=== PATIENT | male | born 1995 | race Caucasian/White ===

== ENCOUNTER → 2017-03-05 20:15 | Emergency (ER) | payer SELFPAY ==
[2017-03-05 20:30] VITALS: BP 145/71
== END | disposition left against medical advice (07) ==
LOC: ED 20:15
DX: K08.89 Other specified disorders of teeth and supporting structures (principal); Z53.21 Procedure and treatment not carried out due to patient leaving prior to being seen by health care provider

== ENCOUNTER 2017-09-06 19:54 | Emergency (ER) | payer OTHER ==
[2017-09-06 20:21] VITALS: BP 156/74
[2017-09-06] MEDS ORDERED: Ondansetron ODT TAB* 4 MG PO ONE (21:13)
--- NOTE | 2017-09-06 21:14 | UC ---
Abdominal Pain Male HPI - HPI Summary HPI Summary: 22 y/o male presents to the urgent care c/o abdominal cramping pain and vomiting since . Pt reports le had an episode of vomiting on night w/ mild cramping abdominal pain. Vomiting returned this afternoon w/ the cramping abdominal pain. Pain is 6/10 is intermittent and diffused w/o any specific radiation. Pt ate late breakfast around noon time. He had a hard bowel movement yesterday and none today. Pt has a lot of gas. Pt denies eating outside, recent travel, recent URI symptoms, fever, SOB, chest pain, diarrhea, blood in the stool. Pt took Pepto-Bismol earlier to alleviate and he thinks that triggered he vomiting. He is UTD w/ all his vaccines for his age. - History of Current Complaint Chief Complaint: UCGI Stated Complaint: ABD PAIN,NAUSEA Time Seen by Provider: 09/06/17 20:52 Hx Obtained From: Patient Onset/Duration: Gradual Onset, Lasting Days - 3 days, Still Present, Worse Since - today Timing: Intermittent Episodes Lasting: - few minutes Severity Initially: Mild Severity Currently: Moderate Pain Intensity: 6 Pain Scale Used: 0-10 Numeric Location: Diffuse Radiates: No Character: Cramping Aggravating Factor(s): Other - yook pepto-Bismol and triguered vomiting Alleviating Factor(s): Rest, Position - laying down Associated Signs And Symptoms: Positive: Constipation, Nausea, Vomiting. Negative: Diaphoresis, Fever, Cough, Blood in Stool, Urinary Symptoms, Decreased Appetite - Risk Factors Testicular Torsion: Negative Cardiac Risk Factors: Negative - Allergies/Home Medications Allergies/Adverse Reactions: Allergies Allergy/AdvReac Type Severity Reaction Status Date / Time No Known Allergies Allergy Verified 09/06/17 20:21 PMH/Surg Hx/FS Hx/Imm Hx Previously Healthy: Yes - Pt denies PMHX - Surgical History Surgical History: None - Family History Known Family History: Positive: Unknown - Pt is adopted - Social History Occupation: Student Lives: With Family Alcohol Use: Occasionally Substance Use Type: None, Marijuana Smoking Status (MU): Former Smoker - Immunization History Vaccination Up to Date: Yes Review of Systems Constitutional: Negative Skin: Negative Eyes: Negative ENT: Negative Respiratory: Negative Cardiovascular: Negative Gastrointestinal: Abdominal Pain - diffuse cramping abdominal pain, Vomiting, Nausea Genitourinary: Negative Motor: Negative Neurovascular: Negative Musculoskeletal: Negative Neurological: Negative Psychological: Negative Is Patient Immunocompromised?: No All Other Systems Reviewed And Are Negative: Yes Physical Exam Triage Information Reviewed: Yes Vital Signs: Initial Vital Signs Temp 98.6 F 09/06/17 20:16 Pulse 71 09/06/17 20:16 Resp 16 09/06/17 20:16 BP 156/74 09/06/17 20:16 Pulse Ox 98 09/06/17 20:16 - Additional Comments VITAL SIGNS: Reviewed. GENERAL: Patient is a well developed and nourished male who is lying comfortable in the examining table. Patient is not in any acute respiratory distress. HEAD AND FACE: Normocephalic and atraumatic. EYES: PERRLA, EOMI x 2, No injected conjunctiva. EARS: Hearing grossly intact. Ear canals and tympanic membranes are WNL. MOUTH: Oropharynx within normal limits. NECK: Supple, trachea is midline, no adenopathy, no JVD. CHEST: Symmetric, no tenderness at palpation LUNGS: Clear to auscultation bilaterally. No wheezing or crackles. CVS: RRR,, S1 and S2 present, no murmurs or gallops appreciated. ABDOMEN::: , Flat with no distention. No surface trauma, normal bowel sounds present in all four quadrants. Moderate tenderness on B/L LQ on deep palpation , no rebound, no guarding, no rigidity to palpation. No masses palpated, no pulsation in epigastric area. No organomegaly. Negative Treadwell's signs. No periumbilical tenderness. NT over McBurney's point. Good femoral pulses bilaterally. No hernia noted. No CVAT bilaterally EXTREMITIES: FROM in all major joints, no edema, no cyanosis or clubbing. NEURO: Alert and oriented x 3. No acute neurological deficits. Speech is normal. SKIN: Dry and warm Abd Pain Male Course/Dx - Course Course Of Treatment: 22 y/o male presents to the urgent care c/o abdominal cramping pain and vomiting since . Pt reports le had an episode of vomiting on night w/ mild cramping abdominal pain. Vomiting returned this afternoon w/ the cramping abdominal pain. Pain is 6/10 is intermittent and diffused w/o any specific radiation. Pt ate late breakfast around noon time. He had a hard bowel movement yesterday and none today. Pt has a lot of gas. Pt denies eating outside, recent travel, recent URI symptoms, fever, SOB, chest pain, diarrhea, blood in the stool. Pt took Pepto-Bismol earlier to alleviate and he thinks that triggered he vomiting. He is UTD w/ all his vaccines for his age.Hx obatined. Pt w/ 1 episode of vomiting before arriving to the clinic. Pt given Zofran PO to alleviate vomiting by the Nurse. pt tolerated well medication.. Pt w/ point tendeness over B/L lower quadrant on examination. Pt's symptoms counsulted w/ Dr Iqbal. Dr Iqbal evaluated Pt and abdomen was soft, normal bowel sounds and no tenderness eleicited at that time. She recommended Zofran PO and Miralax PO to alleviate symptoms. Pt probably w/ constipation. Pt was about to be discharge home. Pt's Mother came in and Pt's abdominal cramping pain returned. Pt's symptoms discussed w/ mother and Mother advised to take her son to the Er for further evaluation and treatment. pt's offered abulance. Mother declined ambulance transfer and stated she will take her son to the ER by private car. D/C instructions explained. Pt left the clinic hemodynamically stable, A&OX3. - Differential Dx/Clinical Impression Differential Diagnosis/HQI/PQRI: Appendicitis, Diverticulitis, Peptic Ulcer Disease, Other - constipation, gastroenteritis Provider Diagnoses: 1- Acute abdominal pain. 2-nausea and vomiting. 3- Constipation. 4- elevated BP w/o Hx of HTN Discharge - Discharge Plan Condition: Stable Disposition: OTHER Discharge Disposition Comment: Pt highly recommended to go to the ER for further Tx on acute abdominal lance Prescriptions: Ondansetron ODT TAB* [Zofran 4 MG Odt TAB*] 4 mg PO Q6H PRN #12 tab.odt PRN Reason: Vomiting Polyethylene Glycol 3350* [Miralax*] 17 gm PO DAILY #1 bottle Patient Education Materials: Constipation (ED), Acute Nausea and Vomiting (ED) , Acute Abdominal Pain (ED), Low-Sodium Diet (ED) Referrals: [facility], [Primary Care Provider] - 2 Days Additional Instructions: 1-Please I highly recommend you to go to the ER for further evaluation and treatment on you abdominal symptoms and have blood work to r/o appendicitis etc. The risks of not going to the ER can be sepsis etc 1- Please increase fluid intake with Gatorade or Pedialyte OTC. eat soft meals and rest. 2- Take the Zofran PO as directed to alleviate nausea and vomiting 3- If you develops fever or abdominal pain w/ recurrent episodes of diarrhea please go the ER, otherwise f/u with your PCP if diarrhea not resolving in 2-3 days 4- Your BP is elevated today please decrease salt in your diet, monitor BP at home, if it continues to be elevated please f/u with your PCP for further management.
== END 2017-09-06 21:30 ==
LOC: UCEAST 19:54
DX: R10.0 Acute abdomen (principal); R11.2 Nausea with vomiting, unspecified; K59.00 Constipation, unspecified; R03.0 Elevated blood-pressure reading, without diagnosis of hypertension; Z87.891 Personal history of nicotine dependence
CPT/HCPCS: 99212; A9270-GY; G0463

== ENCOUNTER 2017-09-06 21:51 | Emergency (ER) | payer OTHER ==
[2017-09-06] MEDS ORDERED: Ondansetron INJ* 2 MG/ML VIAL IV ONE (22:21)
[2017-09-06] MEDS ORDERED: Famotidine TAB* 20 MG PO ONE (22:21)
[2017-09-06 23:27] LABS: ABS Basophils 0 10^3/ul (0-0.2); ABS Eosinophils 0 10^3/ul (0-0.6); ABS Lymphocytes 0.6 10^3/ul (1.0-4.8); ABS Neutrophils 14.6 10^3/ul (1.5-7.7); ABS Nucleated RBC 0 10^3/ul; Eosinophil % 0 % (0-6); Hematocrit 43 % (42-52); Hemoglobin 14.8 g/dl (14.0-18.0); Lymphocyte % 3.9 % (25-47); Mean Corpuscular HGB Conc 34 g/dl (31-36); Mean Corpuscular Hemoglobin 31 pg (27-31); Mean Corpuscular Volume 92 fL (80-94); Mean Platelet Volume 8 um3 (7.4-10.4); Nucleated Red Blood Cells % 0; Platelet Count 188 10^3/ul (150-450); Red Blood Count 4.72 10^6/ul (4.0-5.4); Red Cell Distribution Width 13 % (10.5-15); White Blood Count 16.2 10^3/ul (3.5-10.8)
[2017-09-06 23:43] LABS: EGFR Non-African American 102.3 (>60)
[2017-09-07] MEDS ORDERED: Polyethylene Glycol 3350* 17 GM PACKET PO ONE (00:05)
[2017-09-07] MEDS ORDERED: Simethicone LIQ* 40 MG/0.6 ML UD ORAL SYRINGE PO ONE (00:05)
[2017-09-07] MEDS ORDERED: Al Hydrox/Mg Hydrox/Simet LIQ* 30 ML UDC PO ONE (00:08)
[2017-09-07] MEDS ORDERED: Acetaminophen TAB* 325 MG PO ONE (01:01)
[2017-09-07 01:18] VITALS: BP 114/65
--- NOTE | 2017-09-07 01:22 | ED ---
Abdominal Pain/Male - HPI Summary HPI Summary: Patient is reasonably 22-year-old male presenting to the ED from urgent care with the chief complaint of diffuse upper abdominal pain and epigastric pain which is intermittent and with associated nausea vomiting. Denies any constipation or diarrhea, however states had a hard small bowel movement yesterday, with no bowel movement today. He is normally very regular. He continues to eat and drink okay, but is somewhat less. Symptoms are not aggravated with food or positioning, not alleviated with rest. He has not taken anything for the discomfort. He states while symptoms started 2 days ago , yesterday he felt improved with symptoms returning this afternoon. Denies hematemesis or melena. Denies any sick contacts or travel. Denies eating anything abnormal. Denies fevers, sweats, chills. Endorses slight weakness. Vomiting has been 3 times total in the past 3 days. Vital signs are stable on arrival. - History of Current Complaint Chief Complaint: EDAbdPain Stated Complaint: ABD PAIN Time Seen by Provider: 09/06/17 23:09 Hx Obtained From: Patient Onset/Duration: Sudden Onset Timing: Constant Severity Initially: Moderate Severity Currently: Moderate Pain Intensity: 4 Pain Scale Used: 0-10 Numeric Location: Epigastric Radiates: No Character: Cramping Aggravating Factor(s): Nothing Alleviating Factor(s): Nothing Associated Signs And Symptoms: Positive: Constipation, Nausea, Vomiting. Negative: Diaphoresis, Fever, Cough, Chest Pain, Dizzy, Urinary Symptoms, Decreased Appetite, Diarrhea, Penile Discharge, Other - Risk Factors Testicular Torsion: Negative Cardiac Risk Factors: Negative - Allergies/Home Medications Allergies/Adverse Reactions: Allergies Allergy/AdvReac Type Severity Reaction Status Date / Time No Known Allergies Allergy Verified 09/06/17 20:21 PMH/Surg Hx/FS Hx/Imm Hx Previously Healthy: Yes Endocrine/Hematology History: Denies: Hx Diabetes, Hx Thyroid Disease Cardiovascular History: Denies: Hx Hypertension Respiratory History: Denies: Hx Asthma, Hx Chronic Obstructive Pulmonary Disease (COPD) GI History: Denies: Hx Ulcer - Immunization History Hx Pertussis Vaccination: No Immunizations Up to Date: Unable to Obtain/Confirm Infectious Disease History: No Infectious Disease History: Denies: Hx Hepatitis, Hx Human Immunodeficiency Virus (HIV), Traveled Outside the [place] in Last 30 Days - Social History Occupation: Unemployed, Student Lives: With Family Alcohol Use: Occasionally Hx Substance Use: No Substance Use Type: Reports: None Hx Tobacco Use: No Smoking Status (MU): Former Smoker Review of Systems Positive: Fatigue. Negative: Fever, Chills Negative: Photophobia, Blurred Vision Negative: Palpitations, Chest Pain Negative: Shortness Of Breath, Cough Positive: Abdominal Pain, Vomiting, Nausea. Negative: Diarrhea Genitourinary: Negative Positive: no symptoms reported, see HPI Negative: Arthralgia, Myalgia Neurological: Negative All Other Systems Reviewed And Are Negative: Yes Physical Exam Triage Information Reviewed: Yes Vital Signs On Initial Exam: Initial Vitals Temp Pulse Resp BP Pulse Ox 98.8 F 87 16 123/61 98 09/06/17 21:53 09/06/17 21:53 09/06/17 21:53 09/06/17 21:53 09/06/17 21:53 Vital Signs Reviewed: Yes Appearance: Positive: Well-Appearing, Well-Nourished Skin: Positive: Warm, Skin Color Reflects Adequate Perfusion Head/Face: Positive: Normal Head/Face Inspection Eyes: Positive: EOMI, VIOLETA, Conjunctiva Clear Neck: Positive: Supple, No Lymphadenopathy Respiratory/Lung Sounds: Positive: Clear to Auscultation, Breath Sounds Present Cardiovascular: Positive: RRR, Pulses are Symmetrical in both Upper and Lower Extremities Abdomen Description: Positive: Soft, Other: - Obturator and psoas negative, Treadwell's negative, decreased bowel sounds in all 4 quadrants, pain to palpation of the epigastric region, no evidence of distention or organomegaly, no guarding , abdomen remains soft. Negative: CVA Tenderness (R), CVA Tenderness (L), Distended, Guarding, Hepatomegaly - 2 hours ago, McBurney's Point Tenderness Musculoskeletal: Positive: Normal, Strength/ROM Intact Neurological: Positive: Speech Normal Psychiatric: Positive: Normal, Affect/Mood Appropriate AVPU Assessment: Alert Diagnostics - Vital Signs Vital Signs Temp Pulse Resp BP Pulse Ox 09/07/17 01:09 100.1 F 75 19 114/65 97 09/06/17 21:53 98.8 F 87 16 123/61 98 - Laboratory Lab Results: Lab Results 09/06/17 09/06/17 Range/Units 23:15 23:15 WBC 16.2 H (3.5-10.8) 10^3/ul RBC 4.72 (4.0-5.4) 10^6/ul Hgb 14.8 (14.0-18.0) g/dl Hct 43 (42-52) % MCV 92 (80-94) fL MCH 31 (27-31) pg MCHC 34 (31-36) g/dl RDW 13 (10.5-15) % Plt Count 188 (150-450) 10^3/ul MPV 8 (7.4-10.4) um3 Neut % (Auto) 89.7 H (38-83) % Lymph % (Auto) 3.9 L (25-47) % Shelby % (Auto) 6.1 (0-7) % Eos % (Auto) 0 (0-6) % Baso % (Auto) 0.3 (0-2) % Absolute Neuts (auto) 14.6 H (1.5-7.7) 10^3/ul Absolute Lymphs (auto) 0.6 L (1.0-4.8) 10^3/ul Absolute Monos (auto) 1.0 H (0-0.8) 10^3/ul Absolute Eos (auto) 0 (0-0.6) 10^3/ul Absolute Basos (auto) 0 (0-0.2) 10^3/ul Absolute Nucleated RBC 0 10^3/ul Nucleated RBC % 0 Sodium 133 (133-145) mmol/L Potassium 3.9 (3.5-5.0) mmol/L Chloride 97 L (101-111) mmol/L Carbon Dioxide 29 (22-32) mmol/L Anion Gap 7 (2-11) mmol/L BUN 15 (6-24) mg/dL Creatinine 0.94 (0.67-1.17) mg/dL Est GFR ( Amer) 131.6 (>60) Est GFR (Non-Af Amer) 102.3 (>60) BUN/Creatinine Ratio 16.0 (8-20) Glucose 122 H (70-100) mg/dL Calcium 9.6 (8.6-10.3) mg/dL Total Bilirubin 0.90 (0.2-1.0) mg/dL AST 14 (13-39) U/L ALT 10 (7-52) U/L Alkaline Phosphatase 67 (34-104) U/L Total Protein 7.2 (6.4-8.9) g/dL Albumin 4.7 (3.2-5.2) g/dL Globulin 2.5 (2-4) g/dL Albumin/Globulin Ratio 1.9 (1-3) Lipase < 10 L (11.0-82.0) U/L Result Diagrams: 09/06/17 23:15 09/06/17 23:15 Lab Statement: Any lab studies that have been ordered have been reviewed, and results considered in the medical decision making process. Abdominal Pain Fem Course/Dx - Course Course Of Treatment: During the course of treatment, the patient is evaluated for upper diffuse intermittent abdominal pain with associated nausea and vomiting most notably pain over the epigastric region. Pain is not aggravated or alleviated with food or rest. Vital signs within normal limits on arrival. Reading the note from urgent care, the provider states most likely symptoms due to constipation. Labs obtained and shows a elevated white count at 16.2, this is likely due to vomiting. While unlikely that severe constipation would cause nausea/vomiting, this is also likely viral. There are no other signs of bacterial infection. Denies urinary symptoms or back pain, denies cough or chest congestion. Denies any recent fevers. On physical examination, obturator and psoas negative, Treadwell's sign negative, no tenderness at McBurney' s point. He is given Zofran and famotidine on arrival. He is feeling improved. Abdominal x-ray obtained which shows a moderate to large amount of stool in the colon resulting in a likely constipation. He continues to be able to burp and pass gas, so I am not concerned at this time for a obstruction. He states he would be able to eat and is afebrile which is less concerning for an appendicitis. Denies any abdominal surgeries. I have discussed at length with patient and mother treatment options. While I have offered a CT abdomen/pelvis , I have discussed we would be evaluating for an appendicitis which I do not believe he has. I also discussed risks and benefits. They declined CT at this time. Treatment plan includes simethicone, Maalox, MiraLAX and Zofran for symptomatic care. Patient is given strict return precautions, specifically fever with right lower quadrant pain, worsening nausea vomiting despite the Zofran or the inability to pass gas or have a bowel movement. He understands these return precautions and voices no concerns at this time. Prior to discharge, he is noted to have a 100.4 fever and is given Tylenol 650 mg. He does not meet septic criteria, and I still feel he is a safe candidate for discharge home to the care of his family. - Diagnoses Differential Diagnosis/HQI/PQRI: Appendicitis, Bowel Obstruction, Constipation Provider Diagnoses: Abdominal pain, Nausea & vomiting Discharge - Discharge Plan Condition: Stable Disposition: HOME Prescriptions: Ondansetron ODT TAB* [Zofran 4 MG Odt TAB*] 4 mg PO Q6H PRN #12 tab.odt MDD 4 PRN Reason: Nausea Polyethylene Glycol 3350* [Miralax*] 17 gm PO DAILY #5 packet Patient Education Materials: Abdominal Pain (ED) Referrals: [facility] Rocio, [Primary Care Provider] - Additional Instructions: MiraLAX once daily until symptoms resolve Drink plenty of water while taking this medication Zofran up to 4 times daily as needed for nausea Rest Return to the ED for any worsening or changing symptoms As discussed, I am unable to rule out an appendicitis A CT scan would be necessary to make this diagnosis If he develop any right lower quadrant pain, have worsening nausea vomiting despite the Zofran or having fevers, return to the ED immediately I believe you have constipation based on your x-ray Maalox 30ml [id number] up to 6 times daily as needed for nausea, vomiting , epigastric pain [id number] Gas-X or simethicone for any gas pain, this may be taken up to 4 times daily
--- NOTE | 2017-09-07 07:17 | RAD ---
INDICATION: Constipation COMPARISON: None TECHNIQUE: A single view of the abdomen is submitted. FINDINGS: Bones: There are no acute bony findings. Soft tissues: The soft tissues appear normal. The psoas margins are sharp. Bowel gas pattern: There is no obstruction. There is mild retained stool right colon Calcifications: There are no abnormal calcifications. Other: None IMPRESSION: MILD RETAINED STOOL RIGHT COLON
== END 2017-09-07 01:09 | disposition home or self-care (01) ==
LOC: ED 21:51
DX: R10.9 Unspecified abdominal pain (principal); R11.2 Nausea with vomiting, unspecified; K59.00 Constipation, unspecified; R53.83 Other fatigue; Z87.891 Personal history of nicotine dependence
CPT/HCPCS: 36415; 74018; 80053; 83690; 85025; 96374; 99283; A9270-GY; J2405